=== PATIENT | male | born 1995 | race Two or more races ===

== ENCOUNTER 2019-04-10 08:35 | Emergency (ER) | payer SELFPAY ==
[2019-04-10] MEDS ORDERED: Morphine Sulfate 4 mg/mL 1mL Syr IM STA ×2 (08:57→09:22)
[2019-04-10] MEDS ORDERED: Morphine Sulfate 4 mg/mL 1mL Syr ONE ×2 (09:02→09:24)
--- NOTE | 2019-04-10 09:04 | ED Physician Chart ---
ED Chief Complaint/HPI - Patient Information Date Seen:: 04/10/19 Time Seen:: 08:58 Chief Complaint:: perianal abscess History of Present Illness:: 23 yr old male with perianal abscess large for 3-4 abscess had it drained one yr ago now recurrence with pain reddness swelling Allergies:: Allergies Allergy/AdvReac Type Severity Reaction Status Date / Time No Known Allergies Allergy Verified 04/10/19 08:48 Vitals:: Vital Signs - 8 hr 04/10/19 08:43 Temp 97.9 F HR 108 RR 22 BP 149/62 O2 Sat % 96 ED Review of Systems - Review of Systems General/Constitutional: No fever, Chills Skin: Skin lesions (perianal abscess large) Head: No headache Eyes: No loss of vision ENT: No earache Neck: No neck pain Cardio Vascular: No chest pain Pulmonary: No SOB GI: No vomiting G/U: No dysuria Musculoskeletal: No bone or joint pain Endocrine: No polyuria Hematopoietic: No bruising Allergic/Immuno: No urticaria Neurological: No focal symptoms ED Past Medical History - Past Medical History Past Medical History: Other (hx perianal abscess) Family Medical History - Family Member Sister History Unknown: Yes ED Physical Exam - Physical Examination General/Constitutional: Well-developed, well-nourished Head: Atraumatic Eyes: Lids, conjuctiva normal Other Skin comments:: perianal abscess large swollen red ENMT: External ears, nose nl Neck: Nontender Respiratory: Nl effort/Exclusion Cardio Vascular: RRR GI: No tenderness/rebounding/guarding : No CVA tenderness Extremities: No tenderness or effusion Neuro/Psych: Alert/oriented ED Assessment - Assessment General Assessment: perianal abscess large ED Septic Shock - . Is Septic Shock (SBP<90, OR Lactate>4 mmol\L) present?: No - <6hrs of presentation: Vital Signs: Vital Signs - 8 hr 04/10/19 08:43 Temp 97.9 F HR 108 RR 22 BP 149/62 O2 Sat % 96 ED Reassessment (Disposition) - Reassessment Reassessment:: perianal abscess large s/p incision drainage - Diagnosis Diagnosis:: as above
== END 2019-04-10 10:02 | disposition home or self-care (01) ==
LOC: ER 08:35
DX: K61.0 Anal abscess (principal)
CPT/HCPCS: 99283; 96372 ×3; J0696; J2001; Z7502; Z7610